=== PATIENT | male | born 1970 | race African-American/Black ===

== ENCOUNTER 2018-01-06 11:35 | Emergency (ER) | payer BC, OTHER ==
--- NOTE | 2018-01-06 12:37 | RAD ---
PA AND LATERAL CHEST: History: Cough. FINDINGS: The heart size is normal. The lungs are well expanded without lobar consolidation, pneumothoraces or pleural effusions. No acute osseous abnormality is seen. IMPRESSION: No radiographic evidence of acute cardiopulmonary process. POS: [facility]
== END 2018-01-06 13:18 | disposition home or self-care (01) ==
LOC: ERS 11:35
DX: J30.9 Allergic rhinitis, unspecified (principal); F17.210 Nicotine dependence, cigarettes, uncomplicated; Z71.6 Tobacco abuse counseling
CPT/HCPCS: 71046; 99406

== ENCOUNTER 2023-01-14 14:36 | Observation (INO) | payer BC, SELFPAY ==
[2023-01-14] MEDS ORDERED: Acetaminophen 325 MG TAB PO PRN (14:49)
[2023-01-14] MEDS ORDERED: Guaifenesin DM 100-10/5 ML UDCUP PO PRN (14:49)
[2023-01-14] MEDS ORDERED: HYDROcodone/Acetaminophen 5/325 mg Tablet PO PRN (14:49)
[2023-01-14] MEDS ORDERED: Nitroglycerin 0.4 MG TAB (25 Tab Bottle) SL PRN (14:49)
[2023-01-14 15:02] VITALS: BMI 24.7
[2023-01-14 15:49] LABS: Troponin I Less than 0.010 ng/mL (< 0.028)
[2023-01-14 16:23] LABS: ALT (SGPT) 13 U/L (8-55); AST (SGOT) 12 U/L (5-34); Albumin 3.9 g/dL (3.5-5.0); Alkaline Phosphatase 103 U/L (40-110); Anion Gap 16 mmol/L (10-20); BUN (Urea Nitrogen) 14 mg/dL (8.4-25.7); Bilirubin, Total 0.3 mg/dL (0.2-1.2); Calc. Creatinine Clearance 123 mL/min (70-130); Calcium 9.4 mg/dL (7.8-10.44); Carbon Dioxide 19 mmol/L (22-29); Chloride 109 mmol/L (98-107); Estimated GFR 104; Globulin 3.2 g/dL (2.4-3.5); Glucose 106 mg/dL (70-105); Potassium 3.5 mmol/L (3.5-5.1); Protein, Total 7.1 g/dL (6.0-8.3); Sodium 140 mmol/L (136-145)
[2023-01-14 19:03] LABS: Troponin I Less than 0.010 ng/mL (< 0.028)
[2023-01-14] MEDS: Famotidine 20 MG TAB PO SCH (20:27)
[2023-01-14] MEDS ORDERED: Melatonin 3 MG TAB PO PRN (20:42)
[2023-01-15 05:46] LABS: #Basophils 0.1 thou/uL (0.0-0.2); #Eosinphils 0.2 thou/uL (0.0-0.7); #Monocytes 0.6 thou/uL (0.11-0.59); #Neutrophils 3.9 thou/uL (1.40-6.50); %Basophils 0.6 % (0.0-1.0); %Lymphocytes 50.7 % (21.0-51.0); %Monocytes 5.9 % (0.0-10.0); %Neutrophils 40.4 % (42.0-75.0); Hematocrit 42.4 % (42.0-52.0); Hemoglobin 13.7 g/dL (14.0-18.0); Mean Corpuscular HGB CONC 32.3 g/dL (32.0-36.0); Mean Corpuscular Hemoglobin 29.4 pg (27.0-31.0); Mean Platelet Volume 10.7 fL (7.4-10.4); Platelet Count 228 10x3/uL (130-400); RBC Distribution Width 14.6 % (11.5-14.5); Red Blood Cell (RBC) Count 4.66 mill/uL (4.70-6.10); White Blood Cell (WBC) Count 9.6 10x3/uL (4.8-10.8)
[2023-01-15 06:29] LABS: Hemoglobin A1c 5.9 % (4.0-6.0)
[2023-01-15 06:44] LABS: Anion Gap 12 mmol/L (10-20); BUN (Urea Nitrogen) 13 mg/dL (8.4-25.7); Calc. Creatinine Clearance 139 mL/min (70-130); Calcium 8.9 mg/dL (7.8-10.44); Carbon Dioxide 23 mmol/L (22-29); Cardiac Risk 8.7 (Less than 4.5); Chloride 108 mmol/L (98-107); Cholesterol 225 mg/dl (< 200 Desired); Estimated GFR 108; Glucose 89 mg/dL (70-105); HDL Cholesterol 26 mg/dL (>60 Neg Risk); LDL Cholesterol, Calculated 161 mg/dL; Potassium 3.9 mmol/L (3.5-5.1); Sodium 139 mmol/L (136-145); Triglycerides 190 mg/dL (Less than 150)
[2023-01-15 07:56] VITALS: BP 157/97; TEMP 98.2
[2023-01-15] MEDS: Famotidine 20 MG TAB PO SCH (12:50)
== END 2023-01-15 13:30 | disposition home or self-care (01) ==
LOC: 2SW 14:36
PROVIDERS: ADMIT Hospitalist; ATTEND Emergency Medicine
DX: R07.89 Other chest pain (principal); I25.2 Old myocardial infarction; F17.210 Nicotine dependence, cigarettes, uncomplicated; E78.5 Hyperlipidemia, unspecified; Z79.899 Other long term (current) drug therapy
CPT/HCPCS: 36415; 71045; 78452; 80048; 80053; 80061; 83036; 84484; 85025; 93005; 93010; 93017; 94760; A9500; G0378